=== PATIENT | female | born 1985 | race Two or more races ===

== ENCOUNTER 2024-11-15 21:01 | Emergency (ER) | payer MEDICAID, SELFPAY ==
--- NOTE | 2024-11-15 21:03 | EKG_ITS ---
[facility] Test Date: 2024-11-15 Pat Name: LYNDSAY RODRIGUEZ Department: Room: - Gender: Female Behavioral Medical Director: : 1985 Requested By: ED Temporary Provider Order Number: [id number] Reading MD: ED Temporary Provider Measurements Intervals [place] Rate: 64 P: 56 RI: 131 QRS: 39 QRSD: 76 T: 59 QT: 373 QTc: 386 Interpretive Statements SINUS RHYTHM WITH OCCASIONAL VENTRICULAR PREMATURE COMPLEXES LOW QRS VOLTAGE IN PRECORDIAL LEADS [QRS DEFLECTION < 1.0 mV IN CHEST LEADS] Compared to ECG 05/21/2022 10:13:50 Ventricular premature complex(es) now present /store/S0/[id number]/[id number].pdf
--- NOTE | 2024-11-15 21:24 | EDNOTE_ITS ---
ED Dizzyness RME/HPI General Chief Complaint: Dizziness Stated Complaint: DIZZINESS Time Seen by Provider: 11/15/24 21:21 Arrival date/time: 11/15/24 21:01 RME / HPI RME / HPI Narrative: See [facility] for Dr. Galaviz's HPI documentation. Related Data Home Medications ?Medication ?Instructions ?Recorded ?Confirmed [id number]-[id number] 25 ml PO 05/21/22 mg-10 mg-650 mg/30 mL oral liquid lisinopril 20 mg tablet 20 mg PO QDAY 05/21/2205/21 omeprazole 40 mg capsule,delayed 40 mg PO QDAY 3 05/21/22 release Previous Rx's ?Medication ?Instructions ?Recorded acetaminophen 300 mg-codeine 30 mg 2 tab PO Q8H PRN pa in #20 tabs 11/16/24 tablet meclizine 25 mg tablet 25 mg PO BID PRN dizziness # 20 tabs 11/16/24 nitrofurantoin 100 mg PO BID #14 caps 11/16 monohydrate/macrocrystals 100 mg capsule (Macrobid) ondansetron 4 mg disintegrating 4 mg PO TID PRN nausea and 11/16/24 tablet vomiting 30 days #10 tabs scopolamine base 1 mg over 3 days 1 mg topical .q72 ho urs PRN 11/16/24 transdermal patch (Transderm-Scop) dizziness or vertig o #4 ea Allergies Allergy/AdvReac Type Severity Reaction Status Date / Time Penicillins Allergy Intermediate Numbness Verified 05/22/22 10:06 Review of Systems Review of Systems Systems Reviewed: All systems reviewed, normal except as documented Past Medical History Past Medical History NEUROLOGIC: Positive Migraine; Negative Neurological Disorders or Seizures CARDIAC: Positive Cardiac Disorders and Hypertension; Negative Congestive Heart Failure RESPIRATORY: Negative Chronic Obstructive Pulmonary Disease (COPD) GASTROINTESTINAL: Positive Gastrointestinal Disorders and Gastroesophageal Reflux Disease GENITOURINARY: Positive Genitourinary Disorders (UTI) and Renal Disease (pt's has been passing protein urine, primary Dr running tests); Negative Kidney Stones REPRODUCTIVE: Positive Previous Pregnancies MUSCULOSKELETAL: Negative Musculoskeletal Disorders ENDOCRINE: Negative Endocrine Disorders, Diabetes Mellitus Type 1 or Diabetes Mellitus Type 2 HEMATOLOGIC: Negative Blood Disorders or Anemia OTHER HISTORY: Positive Hospitalization (ectopic surgery), Blood Transfusions and Chicken Pox; Negative Autoimmune Disease, Down Syndrome, Developmental Delay, Shingles, Falls, Blood Transfusion Reaction, Anesthesia Reactions, MRSA or Cancer Family History FAMILY HISTORY: Positive Family Psychiatric Problems (MOM- ANXIET, DEPRESSION), Family Respiratory Disorders (MOM ANS SISTER- ASTHMA) and Family Cancer (SKIN); Negative Family Cardiac Disorders, Family Gastrointestinal Problems, Family Surgery or Family Anesthesia Reaction Surgical History SURGICAL: Positive Section; Negative Cardiac Surgery, Endocrine Surgery, Ear Surgery, Abdominal Surgery, Nephrectomy, Joint Replacement or Neurologic Surgery Social History SMOKING STATUS: Never smoker ED Exam Narrative Physical exam: See MDM for Dr. Galaviz's physical exam documentation. Course Quality Measures none Orders Category Date Time Status Bedside COVID-19 Antigen Test NOW Care 11/15/24 21:29 Completed Bedside Influenza A&B Antigen Test NOW Care 11/15/24 21:30 Completed EKG (ED ONLY) *Do not use* NOW Care 11/15/24 21:[address] head/brain wo con Stat Exams 11/15/24 21:30 Completed EKG (ED Only) Stat Exams 11/15/24 21:03 Draft XR chest 1V portable Stat Exams 11/15/24 21:31 Completed Beta Hydroxybutyrate Stat Lab 11/15/24 21:55 Completed Bilirubin,Direct Stat Lab 11/15/24 21:55 Completed CBC Stat Lab 11/15/24 21:55 Completed CMP [Comprehensive Metabolic Panel] Stat Lab 11/15/24 21:55 Completed CRP [C-Reactive Protein] Stat Lab 11/15/24 21:55 Completed ESR [Sed Rate (ESR)] Stat Lab 11/15/24 21:55 Completed Magnesium Stat Lab 11/15/24 21:55 Completed Procalcitonin Stat Lab 11/15/24 21:55 Completed TSH [Thyroid Stimulating Hormone] Stat Lab 11/15/24 21:55 Completed Troponin I Stat Lab 11/15/24 21:55 Completed UA, C/S IF [Urinalysis, C/S if Indicated] Stat Lab 11/15/24 23:20 Completed Urine Culture Stat Lab 11/15/24 23:20 Received ACETAMINOPHEN w/COD 300-30 [Tylenol w/Cod #3] Med 11/15/24 21:30 Discontinued 2 tab PO X1 ONE Meclizine HCl [Antivert] Med 11/15/24 21:30 Discontinued 25 mg PO X1 ONE Nitrofurantoin Macro [Macrobid] Med 11/16/24 00:07 Discontinued 100 mg PO X1 ONE Ondansetron Odt [Zofran Odt] Med 11/15/24 21:30 Discontinued 4 mg PO X1 ONE Scopolamine [Transderm-Scop Patch] Med 11/15/24 21:30 Discontinued 1 mg TOP X1 ONE Vital Signs Vital signs: Vital Signs Temperature 98.4 F 11/15/24 21:28 Pulse Rate 63 11/15/24 21:28 Respiratory Rate 15 11/15/24 21:28 Blood Pressure 139/82 H 11/15/24 21:28 Pulse Oximetry (%) 100 11/15/24 21:28 Oxygen Delivery Method Room Air 11/15/24 21:28 Dizziness MDM Narrative MDM Narrative:: This section includes all my notes and documentations, including HPI, PE, and ED course. Jose Galaviz MD HPI: 39yo female with history of HTN here with dizziness for the last hour. Describes spinning sensation. Feels like being drunk or seasick. With severe headache. No speech or visual impairment. No right-sided weakness or left-sided weakness. No numbness or tingling. No other complaints. ROS: All negative except as documented in HPI. Physical Exam: General: Alert and oriented. Appearance of malaise noted. Eyes: Conjunctivae and lids clear. PERRL. EOMI. ENT: No nasal congestion. Neck: Supple. No carotid bruit. No JVD. Heart: RRR. Lungs: No respiratory distress. Good air movement. No rhonchi, wheezing, rales. Abdomen: Soft and nontender. Skin: Warm and dry. Neuro: Alert and oriented X 3. Cranial nerves II to XII grossly normal. No peripheral motor deficits. I reviewed all diagnostic test results. My interpretation of the EKG is sinus rhythm with nonspecific ST-T changes. My interpretation of the chest x-ray is NAD. My review of the CT head report is NAD. Blood tests remarkable for Cr 2.5 (stable). UA remarkable for positive leukocyte esterase, 19 WBCs, and bacteria. At this point, diagnoses include: Vertigo UTI (urinary tract infection) CKD Treatment here included: Tylenol with Codeine Meclizine Scopolamine patch Macrobid Zofran Macrobid Significant improvement noted. Recommend outpatient management. Based on my best medical judgment, made decision no further evaluation or treatment indicated at this time. Patient understands and agrees to the discharge instructions customized and printed, see below. Discharge instructions from Dr. Galaviz: ? After extensive evaluation, there is no life-threatening condition. Such as stroke or brain tumor or heart attack. -- Your severe symptoms of dizziness (feeling like you are drunk or seasick) is due to vertigo. See attached handout. -- Use scopolamine patch and meclizine for your severe symptoms. -- And Zofran for nausea/vomiting. And increase oral fluid to prevent dehydration. Maintain clear urine. If dark or yellow, increase oral fluid. -- And do everything very slowly. Including moving your head. And when you sit up or stand up, wait a minute before you progress. --Take Macrobid for urinary tract infection. -- See your private doctor on 11/17/2024 for recheck and further care. Ask for help until you are completely better. Ask to review all test results and official radiology reports, to make sure you receive all necessary follow-ups and monitoring, including final urine culture results. For your dizziness, ask for help with more care and investigation not available here in the ER. Such as MRI imaging of your brain and referral to see neuro logist. And ask for referral to see kidney specialist, because your kidney is not functioning at 100%. -- Seek immediate medical care with worsening or with any concerns. Jose Galavzi MD Patient data External records reviewed:: [facility] previous records (Per chart review, patient was admitted here on 08/01/18 for RLQ pain.) Clinical information provided by:: patient Social determinants that could affect healthcare access:: none Patient has the following chronic illnesses:: HTN How is presenting disease/condition affected by chronic disease/condition?: uneffected by Evaluation data The following diagnostics were reviewed and interpreted by me:: lab results, radiology exam(s) and EKG tracing(s) (My interpretation of the EKG is: Sinus rhythm (64 bpm) with PVCs and nonspecific ST-T changes. Jose Galaviz MD) Lab and/or radiology exams considered but not ordered:: none Interpretation Summary: I reviewed all diagnostic test results. My interpretation of the EKG is sinus rhythm with nonspecific ST-T changes. My interpretation of the chest x-ray is NAD. My review of the CT head report is NAD. Blood tests remarkable for Cr 2.5 (stable). UA remarkable for positive leukocyte esterase, 19 WBCs, and bacteria. Medications / Prescriptions Medications or Prescriptions considered but not ordered:: none Medication administrations:: Medication Administration History Discontinued Medications Acetaminophen/Codeine Phosphate (Acetaminophen W/Cod 300-30 Tablet) 2 tab PO X1 ONE Stop: 11/15/24 21:31 Last Admin: 11/15/24 21:54 Dose: 2 tab Documented By: OA Meclizine HCl (Meclizine Hcl 25 Mg Tablet) 25 mg PO X1 ONE Stop: 11/15/24 21:31 Last Admin: 11/15/24 21:54 Dose: 25 mg Documented By: OA Nitrofurantoin Macrocrystals (Nitrofurantoin Macro 100 Mg Capsule) 100 mg PO X1 ONE Stop: 11/16/24 00:08 Last Admin: 11/16/24 00:20 Dose: 100 mg Documented By: CVL Ondansetron HCl (Ondansetron Odt 4 Mg Tabrap) 4 mg PO X1 ONE; Protocol Stop: 11/15/24 21:31 Last Admin: 11/15/24 21:54 Dose: 4 mg Documented By: OA Scopolamine (Scopolamine 1 Mg Tdsy) 1 mg TOP X1 ONE Stop: 11/15/24 21:31 Last Admin: 11/15/24 21:55 Dose: 1 mg Documented By: OA Tylenol with Codeine, Meclizine, Scopolamine, Macrobid, Zofran, Macrobid. Consultations Consultation(s) initiated? (list below): No Diagnosis Dizziness Differential Diagnosis: benign paroxysmal positional vertigo, orthostatic hypotension and other (dehydration) Most likely diagnosis given after review of the tests above:: Vertigo, UTI (urinary tract infection), Renal insufficiency Admission Indicated Admission indicated?: not indicated Explain why admission is indicated or not indicated:: With significant improvement and no condition needing emergent intervention, there was no indication for admission. Admission Request Was there a request for admission?: No Disposition Plan Disposition Plan: Discharge Discharge Attestation Discharge Attestation: The patient and all family members were given an opportunity to ask questions and understood the discharge instructions. Discharge instructions specifically effects, indications for sooner follow up or return to the emergency department, and the expected course of current diagnosis. Patient condition: Stable Discharge Plan Plan Patient Disposition: HOME (Self Care) Prescriptions/Referrals Prescriptions/Med Rec: New acetaminophen-codeine 300-30 mg tablet 2 tab PO Q8H MDD 6 PRN (Reason: pain) Qty: 20 0RF meclizine 25 mg tablet 25 mg PO BID PRN (Reason: dizziness) Qty: 20 0RF scopolamine base [Transderm-Scop] 1 mg over 3 days patch 3 day 1 mg topical .q72 hours PRN (Reason: dizziness or vertigo) Qty: 4 0RF ondansetron 4 mg tablet,disintegrating 4 mg PO TID PRN (Reason: nausea and vomiting) 30 Days Qty: 10 0RF nitrofurantoin monohyd/m-cryst [Macrobid] 100 mg capsule 100 mg PO BID Qty: 14 0RF Rx Instructions: must administer with a meal/food No Action lisinopril 20 mg Tablet 20 mg PO QDAY omeprazole 40 mg Capsule,Delayed Release(Dr/Ec) 40 mg PO QDAY [id number]-[id number] 25-10-650 mg/30 mL Liquid PO Referrals: Elyssa Uribe FNP [Primary Care Provider] - In 1 week Problem List Clinical Impression: Vertigo, UTI (urinary tract infection), Renal insufficiency Patient/Caregiver Discharge Instructions Discharge Activity: activity as tolerated Education Materials: ED CYSTITIS Female Adult, ED Vertigo, Unspecified, ED Renal Insufficiency Additional Instructions: Discharge instructions from Dr. Galaviz: ? After extensive evaluation, there is no life-threatening condition.? Such as stroke or brain tumor or heart attack. -- Your severe symptoms of dizziness (feeling like you are drunk or seasick) is due to vertigo.? See attached handout. -- Use scopolamine patch and meclizine for your severe symptoms. -- And Zofran for nausea/vomiting.? And increase oral fluid to prevent dehydration.? Maintain clear urine.? If dark or yellow, increase oral fluid. -- And do everything very slowly.? Including moving your head.? And when you sit up or stand up, wait a minute before you progress.? --Take Macrobid for urinary tract infection. -- See your private doctor on 11/17/2024 for recheck and further care. Ask for help until you are completely better. Ask to review all test results and official radiology reports, to make sure you receive all necessary follow-ups and monitoring, including final urine culture results. For your dizziness, ask for help with more care and investigation not available here in the ER.? Such as MRI imaging of your brain and referral to see neurologist. And ask for referral to see kidney specialist, because your kidney is not functioning at 100%. -- Seek immediate medical care with worsening or with any concerns. Instrucciones de simi del Dr. Galaviz: ? Tras fernando evaluaci?n exhaustiva, no se observa ninguna afecci?n potencialmente mortal, yanelis un derrame cerebral, un tumor cerebral o un infarto. -- Panchito s?ntomas graves de mareo (sensaci?n de estar borracho o mareado) se deben al v?rtigo. Consulte el folleto adjunto. -- Use parches de escopolamina y meclizina para los s?ntomas graves. -- Y Zofran para las n?useas y los v?mitos. Aumente la ingesta de l?quidos para prevenir la deshidrataci?n. Mantenga la orina martha. Si es oscura o amarilla, aumente la ingesta de l?quidos. -- Jasmyn todo muy lentamente, incluyendo machine mover la dave. Al incorporarse o levantarse, espere un minuto antes de que se produzcan complicaciones. -- [place] Macrobid para la infecci?n del tracto urinario. -- Consulte a epstein m?dico de cabecera el 01/15/2025 para fernando nueva revisi?n y recibir m?s atenci?n. Solicite ayuda hasta que se recupere por completo. Solicite la revisi?n de todos los resultados de las pruebas y los informes radiol?gicos oficiales para asegurarse de recibir todos los seguimientos y la monitorizaci?n necesarios, incluidos los resultados finales del urocultivo. Para panchito mareos, solicite ayuda con m?s atenci?n e investigaciones que no est?n disponibles aqu? en urgencias, yanelis fernando resonancia magn?allan cerebral y fernando derivaci?n a un neur?logo. Y solicite fernando derivaci?n a un nefr?logo, ya que epstein ri??n no est? funcionando al 100 %. -- Busque atenci?n m?dica inmediata si presenta un empeoramiento o si tiene alguna inquietud. Print Language: Martiniquais Stand Alone Forms: Amber Award Info., Patient Portal Info Letter
[2024-11-15 21:28] VITALS: BP 139/82; PULSE 63; RESP 15; TEMP 36.9; O2SAT 100
--- NOTE | 2024-11-15 21:30 | XR_ITS ---
Examination: CT brain head without contrast. 2-D sagittal coronal reconstructions Date and time of exam:November 15, 2024, 1001 hrs. Indications: Dizziness episodes today and syncope CTDI: vol (mGy):46.8 DLP: (mGycm):876 Technique: Multiple CT axial sections of the brain have been obtained, 5 mm slice thickness. Contrast has not been administered. 2-D sagittal, coronal reconstructions have been obtained Low dose protocols were performed. One or more of the following dose reduction techniques were used; automated exposure control, adjustment of the mA and/or KV according to patient size, use of iterative reconstruction technique. Findings: No significant ventricular enlargement. Intra-axial or extra-axial hemorrhage density is not seen. No mass effect or midline shift Basal cisterns are not remarkable. Fourth ventricle is midline. Cranial vault intact. Acute left ethmoid sinusitis Impression: Negative for acute hemorrhage, mass effect or midline shift
--- NOTE | 2024-11-15 21:31 | XR_ITS ---
Examination: PA chest single view Technique: Upright PA chest single view Date and time: November 15, 2024, 2142 hrs. Indications: Shortness breath dizziness beginning today. Findings: Normal heart size. Lungs are clear. The osseous structures are intact. Impression: No active disease.
[2024-11-15] MEDS: MECLIZINE HCL 25 MG TABLET PO (21:54)
[2024-11-15] MEDS: ACETAMINOPHEN w/COD 300-30 TABLET 2 TAB PO (21:54)
[2024-11-15] MEDS: ONDANSETRON ODT 4 MG TABRAP PO (21:54)
[2024-11-15] MEDS: SCOPOLAMINE 1 MG TDSY TOP (21:55)
[2024-11-15 22:19] LABS: Beta Hydroxybutyrate 0.1 mmol/L (<0.6)
[2024-11-15 22:20] LABS: Basophils # (Auto) 0.0 Thou/mm3 (0.0-0.2); Basophils % (Auto) 1 % (0-2.5); Eosinophils # (Auto) 0.2 Thou/mm3 (0.0-0.5); Eosinophils % (Auto) 3 % (0-10); Hematocrit 31.8 % (36.0-46.0); Hemoglobin 10.8 g/dL (12.0-16.0); Immature Granulocytes Auto 0.01 Thou/mm3 (0.00-0.00); Lymphocytes # (Auto) 2.3 Thou/mm3 (1.0-4.8); Lymphocytes % (Auto) 37 % (10-50); Mean Corpuscular HGB Conc 34.0 g/dl (31.0-37.0); Mean Corpuscular Hemoglobin 30.0 pg (25.0-35.0); Mean Corpuscular Volume 88 fL (80-100); Monocytes # (Auto) 0.4 Thou/mm3 (0.0-0.8); Monocytes % (Auto) 6 % (0-12); Neutrophils # (Auto) 3.4 Thou/mm3 (1.8-7.7); Neutrophils % (Auto) 54 % (37-80); Nucleated Red Blood Cell # 0.00 Thou/mm3 (0.00-0.00); Nucleated Red Blood Cell % 0 /100 WBC (0); Platelet Count 140 Thou/mm3 (140-440); RDW Standard Deviation 39.8 fL (36.4-46.3); Red Blood Count 3.60 Miln/mm3 (4.00-5.20); White Blood Count 6.4 Thou/mm3 (3.6-11.0)
[2024-11-15 22:34] LABS: Sed Rate (ESR) 22 mm/hr (0-20)
[2024-11-15 22:53] LABS: Alanine Aminotransferase 14 U/L (10-49); Albumin, Serum 4.8 gm/dL (3.5-5.0); Albumin/Globulin Ratio 1.7 (1.2-2.2); Alkaline Phosphatase 65 U/L (46-116); Anion Gap 11 (7-16); Aspartate Amino Transferase 23 U/L (0-34); BUN/Creatinine Ratio 12 Ratio (12-20); Bilirubin,Total 0.3 mg/dL (0.3-1.2); Blood Urea Nitrogen 30 mg/dL (9-23); Calcium 9.8 mg/dL (8.3-10.6); Calcium (Corrected) 9.8 mg/dL (8.5-10.1); Carbon Dioxide 19.8 mMol/L (20.0-31.0); Chloride 110 mMol/L (98-107); Creatinine (Component) 2.5 mg/dL (0.6-1.3); Globulin 2.9 gm/dL (2.3-3.5); Glucose 94 mg/dL (74-106); Magnesium 2.0 mg/dL (1.6-2.6); Osmolality,Calculated 287 (275-295); Potassium 4.2 mMol/L (3.4-5.1); Procalcitonin 0.07 ng/ml (0.0-0.49); Sodium 141 mMol/L (136-145); Thyroid Stimulating Hormone 1.13 uIU/mL (0.55-4.78); Total Protein 7.7 gm/dL (5.7-8.2); Troponin I < 0.002 ng/mL (0.0-0.045); eGFR 24 See Note
[2024-11-15 22:55] LABS: Bilirubin,Direct < 0.1 mg/dL (0.0-0.3); C-Reactive Protein < 0.5 mg/dL (0.0-0.9)
[2024-11-15 23:25] LABS: Collection Type, Urine Clean Catch
[2024-11-15 23:36] LABS: Bacteria,Urine Rare; Bilirubin,Urine Negative (Negative); Blood,Urine Negative (Negative); Clarity,Urine Clear (Clear/Hazy); Color,Urine Colorless (Lt Yel-Yel); Glucose, Urine Negative (Negative); Ketones,Urine Negative (Negative); Leukocyte Esterase,Urine Positive (Negative); Nitrite,Urine Negative (Negative); PH,Urine 6.0 (5.0-7.0); Protein,Urine Negative (Neg - Trace); RBC,Urine 2 /hpf (0-3); Specific Gravity,Urine 1.007 (1.001-1.035); Squamous Epithelial Cell,Urine 1 /hpf (0-5); Urobilinogen,Urine Negative mg/dL (0.0-1.0); WBC,Urine 19 /hpf (0-5)
[2024-11-15 23:48] LABS: Culture Indicated,Urine Yes
[2024-11-16] MEDS: NITROFURANTOIN MACRO 100 MG CAPSULE PO (00:20)
[2024-11-16 00:39] VITALS: RESP 16
== END 2024-11-16 00:40 | disposition home or self-care (01) ==
PROVIDERS: Emergency Provider Emergency Medicine; PCP Nurse Practitioner Family
DX: R42 Dizziness and giddiness (principal); N39.0 Urinary tract infection, site not specified; N28.9 Disorder of kidney and ureter, unspecified; I10 Essential (primary) hypertension
CPT/HCPCS: 36415; 70450; 71045; 80053; 81001; 82010; 82248; 83735; 84145; 84443; 84484; 85025; 85652; 86140; 87086; 87400; 87811; 93005; 99284; Q0162; A9270